=== PATIENT | female | born 1980 | race Caucasian/White ===

== ENCOUNTER → 2019-06-27 12:09 | Outpatient (CLI) | payer OTHER, SELFPAY ==
[2019-06-27 13:26] LABS: HCG Quantitative /Beta subunit 1130.2 mIU/mL
== END ==
PROVIDERS: Visit Provider Family Medicine
DX: O46.91 Antepartum hemorrhage, unspecified, first trimester (principal)
CPT/HCPCS: 36415; 84702

== ENCOUNTER → 2019-07-06 16:15 | Outpatient (CLI) | payer OTHER, SELFPAY ==
--- NOTE | 2019-07-06 | DI.US.S_ITS ---
PROCEDURE: US OB <= 14 WEEKS FETUS INDICATIONS: INITIAL SIZING AND DATING OUTSIDE/PRIOR DATING DATA: Last menstrual period (LMP): Unknown. LMP-based estimated date of delivery (NIRALI): Unknown. First dating scan (date and location): None. Estimated date of delivery (NIRALI) from first dating scan: None available. TECHNIQUE: Real-time scanning was performed of the fetus and maternal pelvic organs, with image documentation. Endovaginal scanning was also performed to better visualize the fetus and maternal ovaries. COMPARISON: None. FINDINGS: Uterus measures 8.8 x 4.4 x 5.2 cm in size. Endometrium measures 10.2 mm in thickness. No intrauterine gestational sac is seen. No gross endometrial mass or fluid is noted. Thickened lining within cervical canal is seen and measures up to 12.5 mm in thickness. Right ovary measures 3.5 x 1.6 x 1.8 cm in size. Left ovary measures 2.8 x 1.4 x 1.2 cm in size. No gross solid or paraovarian lesion. No evidence of torsion. Physiologic amount of fluid is noted in the posterior cul-de-sac. IMPRESSION: 1. Thickened endometrium and endocervical lining. No intrauterine gestational sac is seen. No gross endometrial mass or fluid. Finding may indicate diminished . 2. Normal appearing bilateral ovaries. 3. Physiologic amount of fluid within pelvis. Dictated by: Kian Christiansen M.D. on 07/06/2019 at 19:01 Approved by: Kian Christiansen M.D. on 07/06/2019 at 19:04
== END ==
PROVIDERS: Visit Provider Family Medicine
DX: O03.9 Complete or unspecified spontaneous abortion without complication (principal); R93.89 Abnormal findings on diagnostic imaging of other specified body structures
CPT/HCPCS: 76801; 76830